=== PATIENT | male | born 1960 | race Caucasian/White ===

== ENCOUNTER → 2017-01-16 | Outpatient (CLI) | payer BC ==
[~2017-01-16] MED LIST: DABI75CA3 PO; IOHEXOL 350 MG/ML 50ml INJECTION ONE; IOHEXOL 350 MG/ML 75ml INJECTION ONE; NORMAL SALINE 100 ML ONE; ORPH100T2 PO; SALINE FLUSH 10ml SYRINGE ONE
--- NOTE | 2017-01-16 14:12 | DI ---
Indication: ITS.REASON: R23.1 PALLOR; M79.646 Pain in unspecified finger(s) PROCEDURE: CTA UPPER EXTREMITY BILAT W/WO: Encounter: Initial Comparison: CT angiography of the chest dated February 10, 2015 Technique: CT angiography of both upper extremities was performed with and without contrast. Coronal and sagittal MIP reconstructed images were created and reviewed. Three-dimensional surface shaded volume rendered imaging of the arterial vasculature was also created by the technologist. Automated Exposure Control and Iterative Reconstruction dose reducing techniques were utilized. Contrast: Omnipaque 350 120mL Findings: Stable presumably benign small right middle lobe pulmonary nodule. Minimal atelectasis or scarring in the lower lobes. No pulmonary mass, pleural effusion or pneumothorax. The central airways are patent. Stable probable granuloma in the left lower lobe. Noncontrast images show no evidence of significant atherosclerotic plaque within the upper extremity arterial vasculature. Minimal atherosclerotic plaque in the thoracic aorta. There is a small cyst noted in the right lobe of liver which is unchanged from the comparison study. No acute findings within the abdomen or pelvis. Sebaceous cyst noted incidentally in the upper left back. Postcontrast imaging shows normal enhancement of the arterial vasculature. No evidence of aortic aneurysm or dissection. The right subclavian artery is widely patent extending into the brachial, radial and ulnar arteries. The left subclavian artery is widely patent. No evidence of stenosis or occlusion. Left brachial artery appears normal extending into the radial and ulnar arteries. There is diminished flow in the left proximal radial artery and it appears occluded or nearly occluded distally. The ulnar artery is patent. The visualized arterial vasculature of the abdomen and pelvis is also within normal limits without evidence of aneurysm or occlusion. Slightly delayed images were also performed showing the venous phase. Bone windows show no acute fracture. 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 Recommend correlation with Doppler arterial evaluation. Conventional angiography may also be helpful. No stenosis or occlusion seen in the right upper extremity arterial vasculature. Results were called to the ordering clinician's office at [id number] on January 16, 2017 .
== END ==
LOC: IMA 12:28
PROVIDERS: ATTEND Physician Assistant
DX: R91.1 Solitary pulmonary nodule (principal); I74.8 Embolism and thrombosis of other arteries; R23.1 Pallor; M79.646 Pain in unspecified finger(s)
CPT/HCPCS: 73206; J7050; Q9967